=== PATIENT | female | born 1970 | race Caucasian/White ===

== ENCOUNTER 2020-03-13 14:38 | Emergency (ER) | payer OTHER ==
[~2020-03-13] VITALS: Ht 170.2 cm; Wt 72.6 kg
[2020-03-13] MEDS ORDERED: ONDANSETRON HCL INJ 2MG/ML 2ML 2 MG/ML VIAL IV STA (15:32)
--- OUTSIDE RECORDS SUMMARY | 2020-03-13 15:45 | XMS REPORT | Clinical Summary ---
Author Author [facility] Organization [place] [facility] Address Unknown Phone Unavailable Care Team Providers Care Saw Cleaner Name Role Phone Juan Temple MD PCP Allergies Comments Active Allergy Reactions Severity Noted Date Hydrocodone-Acetaminophen Itching 10/17/2009 Medications End Date Status Medication Sig Dispensed Refills Start Date Active LINZESS 290 mcg capsule 0 8 Active pantoprazole (PROTONIX) Take 40 mg by 3 40 MG EC tablet mouth 2 (two) 9 times a day. Active multivit with Take by mouth 0 calcium,iron,min daily. Take 2 (MULTIPLE VITAMIN, WOMENS gummies every ORAL) morning Active venlafaxine XR Take 75 mg by 0 (EFFEXOR-XR) 75 MG 24 hr mouth daily. capsule Active Lactobacillus acidophilus Take by 0 (PROBIOTIC ORAL) mouth. 11/17/2019 Discontinued (Med List Clean up) escitalopram (LEXAPRO) 10 Take 10 mg by 0 MG tablet mouth daily. 04/07/2019 ciprofloxacin (CIPRO) 500 Take 1 tablet 14 tablet 0 MG tablet (500 mg 9 total) by mouth 2 (two) times a day for 7 days. 04/07/2019 metroNIDAZOLE (FLAGYL) Take 1 tablet 14 tablet 0 1 500 MG tablet (500 mg 9 total) by mouth 3 (three) times a day for 7 days. 04/05/2019 keTOROlac (TORadol) 10 mg Take 1 tablet 20 tablet 0 tablet (10 mg total) 9 by mouth every 6 (six) hours as needed for moderate pain for up to 5 days. 04/08/2019 ondansetron (ZOFRAN) 4 MG Take 1 tablet 30 tablet 0 tablet (4 mg total) 9 by mouth every 6 (six) hours for 30 doses. Active Problems Problem Noted Date Other sprain of right shoulder joint, sequela 2019 Shoulder tendinitis 11/17/2019 Cervicalgia 10/06/2019 Sprain of left knee 01/26/2018 Diverticulosis 02/12/2016 Encounters Care Team Description Date Type Specialty Jose Corral MD Canceled (Patient) 02/17/2020 Hospital Procedural Cardiolo gy Encounter 02/15/2020 Travel Jose Corral MD Chest pain, moderate coronary artery ris k (Primary Dx); Anginal equivalent (HCC); Dyslipidemia; Cardiovascular risk factor; Family history of premature CAD; Counseling on health promotion and disease prevention; Lower extremity edema; SOHEILA (obstructive sleep apnea) 02/06/2020 Telephone Cardiology Consult 02/06/2020 Travel Smiley Keith RN Chest pain, moderate coronary artery ris k (Primary Dx); Anginal equivalent (HCC); Coronary artery disease involving [place] heart without angina pectoris, unspecified vessel or lesion type 02/06/2020 Orders Only Cardiology Logan Pickett MD Other sprain of right shoulder joint, se carvajal (Primary Dx) 12/09/2019 Office Visit Orthopedic Surgery 12/09/2019 Travel 12/07/2019 Travel Logan Pickett MD Other sprain of right shoulder joint, se quela (Primary Dx) 12/01/2019 Office Visit Orthopedic Surgery 12/01/2019 Travel Logan Pickett MD Right shoulder pain, unspecified chronic ity (Primary Dx); Acute pain of right shoulder; Tendinitis of right shoulder 11/17/2019 Office Visit Orthopedic Surgery 11/17/2019 Travel 10/19/2019 Travel 10/13/2019 Travel 10/11/2019 Travel Logan Pickett MD Right shoulder pain, unspecified chronic ity (Primary Dx); Cervicalgia 10/06/2019 Office Visit Orthopedic Surgery 10/06/2019 Travel 10/03/2019 Travel Man Lewis MD Diverticulitis (Primary Dx) 03/30/2019 Emergency Emergency Medicine - 03/31/2019 after 03/13/2019 Surgical History Surgery Date Site/Laterality Comments SECTION TUBAL LIGATION GALLBLADDER SURGERY HYSTERECTOMY Medical History Medical History Date Comments Anemia Breast lump Bronchitis Chicken pox Gallbladder disease Hyperlipidemia Pneumonia Family History Medical History Relation Name Comments Hyperlipidemia Father Kidney disease Father Cancer Mother Emphysema Mother Heart disease Mother Hypertension Mother Relation Name Status Comments Father Mother Social History Date Tobacco Use Types Packs/Day Years Used Former Smoker Smokeless Tobacco: Never Used Drinks/Week oz/Week Comments Alcohol Use social Yes Sex Assigned at Date Recorded Female 01/26/2019 11:28 AM CDT Date Recorded COVID-19 Exposure Response 02/15/2020 3:32 PM CDT In the last month, have you been in contact with No / Unsure someone who was confirmed or suspected to have Coronavirus / COVID-19? Last Filed Vital Signs Reading Time Taken Comments Vital Sign 115/76 03/31/2019 1:00 AM [employer] Blood Pressure 66 03/31/2019 1:00 AM [employer] Pulse 36.7 C (98 F) 03/30/2019 9:49 PM [employer] Temperature 15 03/31/2019 1:00 AM [employer] Respiratory Rate 97% 03/31/2019 1:00 AM [employer] Oxygen Saturation - - Inhaled Oxygen Concentration 74.8 kg (165 lb) 02/03/2020 1:01 PM CDT Weight 167.6 cm (5' 6") 02/03/2020 1:01 PM CDT Height 26.63 02/03/2020 1:01 PM CDT Body Mass Index Plan of Treatment Health Maintenance Due Date Last Done Comments CERVICAL CANCER SCREENING 06/28/1992 INFLUENZA VACCINE Completed 02/23/2020, 01/31/2019 Procedures Comments Procedure Name Priority Date/Time Associated Diag nosis MRI SHOULDER WO CONTRAST Routine 12/07/2019 Other sprain of right RIGHT 8:08 AM CDT shoulder joint, seq uela XR SHOULDER 2+ VW RIGHT Routine 11/17/2019 Acute pain of right 3:27 PM CDT shoulder ID ARTHROCENTESIS Routine 11/17/2019 Tendinitis o f right ASPIR&/INJ MAJOR JT/BURSA 2:45 PM CDT shoulder W/O US CT ABDOMEN PELVIS WO STAT 03/30/2019 CONTRAST 11:40 PM [employer] ESTIMATED GFR STAT 03/30/2019 10:35 PM [employer] URINALYSIS SCREEN AND STAT 03/30/2019 MICROSCOPY, WITH REFLEX 10:35 PM [employer] TO CULTURE LIPASE LEVEL STAT 03/30/2019 10:35 PM [employer] COMPREHENSIVE METABOLIC STAT 03/30/2019 PANEL 10:35 PM [employer] HC COMPLETE BLD COUNT STAT 03/30/2019 W/AUTO DIFF 10:35 PM [employer] URINE CULTURE STAT 03/30/2019 10:34 PM [employer] after 03/13/2019 Results * MRI Shoulder Wo Contrast Right (12/07/2019 8:08 AM CDT) Specimen Narrative Performed At [facility] EXAMINATION: MRI SHOULDER WO CONTRAST RIGHT CLINICAL HISTORY: S43.491S Other spra in of right shoulder joint sequela, Shoulder pain rotator cuff tear impin gement suspected TECHNIQUE: Multiplanar multisequence MR imaging of the shoulder was performed without contrast. COMPARISON: 11/17/2019 FINDINGS: 1. Rotator cuff: Low-grade partial-thic kness bursal and interstitial tears of the supraspinatus. Infraspinatus, teres minor and subscapularis are unremarkable. No muscle atrophy. 2. Bursa: Trace subacromial/subdeltoid bursitis. 3. Biceps tendon: Long head of the sujit ps tendon intact. 4. Labrum: Intrasubstance degeneration of the anterosuperior labrum. No displaced labral tear. 5. AC joint: Mild AC joint degenerative arthritis. 6. Glenohumeral joint: Intact. Satisfac tory alignment. Osseous glenoid intact. 7. Articular cartilage: Articular carti mihai intact. 8. Joint Fluid:No joint effusion. Physi ologic joint fluid. 9. Bone marrow: No suspicious marrow si gnal abnormalities or stress changes. 10. Soft tissues: No mass, fluid collec tion or hematoma. IMPRESSION: 1.Partial-thickness tear of the suprasp inatus. No rotator cuff muscle atrophy. 2.Mild AC joint degenerative changes an d trace subacromial/subdeltoid bursitis. [id number] Procedure Note Hm Interface, Radiology Results Incoming - 12/07/2019 8:15 AM CDT EXAMINATION: MRI SHOULDER WO CONTRAST RIGHT CLINICAL HISTORY: S43.491S Other sprain of right shoulder joint sequela, Shoulder pain rotator cuff tear impingement suspected TECHNIQUE: Multiplanar multisequence MR imaging of the shoulder was performed without contrast. COMPARISON: 11/17/2019 FINDINGS: 1. Rotator cuff: Low-grade partial-thick ness bursal and interstitial tears of the supraspinatus. Infraspinatus, teres minor and subscapularis are unremarkable. No muscle atrophy. 2. Bursa: Trace subacromial/subdeltoid b ursitis. 3. Biceps tendon: Long head of the bicep s tendon intact. 4. Labrum: Intrasubstance degeneration o f the anterosuperior labrum. No displaced labral tear. 5. AC joint: Mild AC joint degenerative arthritis. 6. Glenohumeral joint: Intact. Satisfact ory alignment. Osseous glenoid intact. 7. Articular cartilage: Articular cartil age intact. 8. Joint Fluid:No joint effusion. Physio logic joint fluid. 9. Bone marrow: No suspicious marrow sig nal abnormalities or stress changes. 10. Soft tissues: No mass, fluid collect ion or hematoma. IMPRESSION: 1.Partial-thickness tear of the supraspi natus. No rotator cuff muscle atrophy. 2.Mild AC joint degenerative changes and trace subacromial/subdeltoid bursitis. [id number] Performing Organization Address City/[facility] Code P marilin Number [facility] [address] [place] [address] * XR Shoulder 2+ Vw Right (11/17/2019 3:27 PM CDT) Specimen Narrative Performed At [facility] Three-view x-ray of the right shoulder: There is a normal study with a small subacromial spur but otherwise no significant bony abnormality Performing Organization Address [facility] P marilin Number [facility] [address] [place] [address] * Large Joint Arthrocentesis: shoulder, R subacromial bursa (11/17/2019 2:45 PM CDT) Narrative Performed At Logan Pickett MD 11/17/2019 4:08 PM Large Joint Arthrocentesis: shoulder, R subacromial bursa Consent given by: patient Supporting Documentation Indications: pain Procedure Details Location: shoulder - R subacromial burs a Right side: Needle size: 22 G Approach: posterior Right shoulder medications administered : 80 mg methylPREDNISolone acetate 40 mg/mL; 3 mL lidocaine 10 mg/mL (1 %) * CT Abdomen Pelvis Wo Contrast (03/30/2019 11:40 PM [employer]) Specimen Narrative Performed At EXAMINATION: CT ABDOMEN PELVIS WO CONTRAST RADI ANT CLINICAL HISTORY: r o diverticulitis TECHNIQUE: Multiple axial images of the abdomen an d pelvis were obtained without intravenous administration of iodinated contrast. Sagittal and coronal computerized reformatted images were al so obtained. The lack of intravenous contrast reduces the sensitivity of detecting solid organ disease. Radiatio n dose reduction technique was utilized. COMPARISON: 11/28/2014 IMPRESSION: Abdomen: 1. There is no urinary tract calculus o r hydronephrosis. 2.Liver, spleen, pancreas, adrenals, an d kidneys do not demonstrate any masses without contrast. 3.There is no retroperitoneal adenopath y or ascites. 4.There are no dilated or thickened loo ps of bowel. 5.Status post cholecystectomy Pelvis: 1. Inflammatory changes consistent with acute diverticulitis are seen in the proximal sigmoid colon. There is no ehsan e air or abscess. 2.Appendix is normal. 3.Status post hysterectomy. 4.There is a small amount of free fluid in cul-de-sac. [id number] Procedure Note Interface, Radiology Results Incoming - 03/30/2019 11:51 PM [employer] EXAMINATION: CT ABDOMEN PELVIS WO CONTRAST CLINICAL HISTORY: r o diverticulitis TECHNIQUE: Multiple axial images of the abdomen and pelvis were obtained without intravenous administration of iodinated contrast. Sagittal and coronal computerized reformatted images were also obtained. The lack of intravenous contrast reduces the sensitivity of detecting solid organ disease. Radiation dose reduction technique was utilized. COMPARISON: 11/28/2014 IMPRESSION: Abdomen: 1. There is no urinary tract calculus or hydronephrosis. 2.Liver, spleen, pancreas, adrenals, and kidneys do not demonstrate any masses without contrast. 3.There is no retroperitoneal adenopathy or ascites. 4.There are no dilated or thickened loop s of bowel. 5.Status post cholecystectomy Pelvis: 1. Inflammatory changes consistent with acute diverticulitis are seen in the proximal sigmoid colon. There is no free air or abscess. 2.Appendix is normal. 3.Status post hysterectomy. 4.There is a small amount of free fluid in cul-de-sac. [id number] Performing Organization Address City/State/[place] [address] * Urinalysis screen and microscopy, with reflex to culture (03/30/2019 10:35 PM [employer]) Specimen site Clean catch [facility] Color, UA Straw [facility] Appearance, UA Clear [facility] Specific 1.009 1.001 - 1.035 [facility] gravity, [facility] pH, UA 7.0 5.0 - 8.5 [facility] Protein, UA Negative Negative [facility] Glucose, UA Negative Negative [facility] Ketones, UA Negative Negative [facility] Bilirubin, UA Negative Negative [facility] Blood, UA Small (A) Negative [facility] Nitrite, UA Negative Negative [facility] Urobilinogen, <2.0 <2.0 [facility] Leukocyte Negative Negative [facility] esterase, [facility] Epithelial 2 /HPF [facility] cells, [facility] WBC, UA 2 0 - 4 /HPF [facility] RBC, UA 2 0 - 5 /HPF [facility] Bacteria, UA Few None seen [facility] Yeast, UA None seen [facility] Yeast with None seen [facility] Specimen Urine Performing Organization Address [facility] P marilin Number [facility] [place] [address] [facility] [address] * Estimated GFR (03/30/2019 10:35 PM [employer]) Pathologist [facility] Estimated GFR 75 mL/min/1.73 m2 [facility] Comment: [facility] Interpretation G1 >=90 Normal or high G2 60-89 Mildly decreased G3a 45-59 Mildly to moderately decreased G3b 30-44 Moderately to severely decreased G4 15-29 Severely decreased G5 <15 Kidney failure The eGFR was calculated using the Chronic Kidney Disease Epidemiology Collaboration (CKD-EPI) equation. Interpretation is based on recommendations of the National Kidney Foundation-Kidney Disease Outcomes Quality Initiative (NKF-KDOQI) published in 2014. Specimen Plasma specimen Performing Organization Address City/State/ZIP [place] [address] [facility] [address] * CBC with platelet and differential (03/30/2019 10:35 PM [employer]) WBC 7.59 4.50 - 11.00 k/uL [facility] RBC 4.13 (L) 4.20 - 5.50 m/uL [facility] HGB 12.4 12.0 - 16.0 g/dL [facility] HCT 38.8 37.0 - 47.0 % [facility] MCV 93.9 82.0 - 100.0 fL [facility] MCH 30.0 27.0 - 34.0 pg [facility] MCHC 32.0 31.0 - 37.0 g/dL [facility] RDW - SD 42.8 37.0 - 55.0 fL [facility] MPV 9.4 8.8 - 13.2 fL [facility] Platelet count 244 150 - 400 k/uL [facility] Nucleated RBC 0.00 /100 WBC [facility] Neutrophils 67.8 39.0 - 69.0 % [facility] Lymphocytes 22.5 (L) 25.0 - 45.0 % [facility] Monocytes 8.0 0.0 - 10.0 % [facility] Eosinophils 1.1 0.0 - 5.0 % [facility] Basophils 0.5 0.0 - 1.0 % [facility] Immature 0.1Comment: "Immature 0.0 - 1.0 % [facility] granulocytes granulocytes" (promyelocytes, METHOD IST myelocytes, metamyelocytes) HOSPITAL Specimen Blood Performing Organization Address City/State/ZIP Code P marilin Number [facility] [place] [address] [facility] [address] * Lipase level (03/30/2019 10:35 PM [employer]) Pathologist [facility] Lipase 31 13 - 60 U/L [facility] Specimen Plasma specimen Performing Organization Address City/State/ZIP [place] [address] [facility] [address] * Comprehensive metabolic panel (03/30/2019 10:35 PM [employer]) Pathologist [facility] Sodium 139 135 - 148 mEq/L [facility] Potassium 3.8 3.5 - 5.0 mEq/L [facility] Chloride 99 98 - 112 mEq/L [facility] CO2 28 24 - 31 mEq/L [facility] Anion gap 12@ANIO 7 - 15 mEq/L [facility] BUN 9 6 - 20 mg/dL [facility] Creatinine 0.91 (H) 0.50 - 0.90 mg/dL [facility] Glucose 97 65 - 99 mg/dL [facility] Calcium 9.5 8.3 - 10.2 mg/dL [facility] Protein 7.2 6.3 - 8.3 g/dL [facility] Comment: [facility] Rforuuu2247.6-7.0 g/dL HOSPITAL 1 [id number] g/dL 7 months-3qoht560.1-7.3 g/dL 1-2 iytcy864.6-7.5 g/dL >3 bdraj138.0-8.0 g/dL 18-9284839.3-8.3 g/dL Albumin 3.6 3.5 - 5.0 g/dL [facility] A/G ratio 1.0 0.7 - 3.8 [facility] Alkaline 56 35 - 104 U/L [facility] phosphatase [facility] AST 15 10 - 35 U/L [facility] ALT 15 5 - 50 U/L [facility] Total bilirubin 0.6 0.0 - 1.2 mg/dL [facility] Specimen Plasma specimen Performing Organization Address City/[facility]/ZIP [facility] [place] [address] PATHOLOGY AND [facility]OM[facility] MEDICINE [address] * Urine culture (03/30/2019 10:34 PM [employer]) Urine culture SEE COMMENTComment: [facility] Bacteriuria screen negative. [facility] Specimen Performing Organization Address City/[facility] [place] [address] PATH[facility]Y AND [facility] MEDICINE [address] after 03/13/2019 Insurance Type Payer Benefit Subscriber ID Effective Phone Address Plan / Dates Group HMO/PPO [facility] [id number] 2019-P THCARE resent CHOICE/CHO ICE + [phone] Advance Directives For more information, please contact: [phone] Patient High Voltage Electrician Explanation Type Date Recorded Advance Directives, Living Will and Medical Power of Hospital Monitor Advance Directives, Living Will and Medical Power of Hospital Monitor Advance Directives, Living Will and Medical Power of Hospital Monitor
--- OUTSIDE RECORDS SUMMARY | 2020-03-13 15:45 | XMS REPORT | Clinical Summary ---
Author Author VINCE miacosa [facility] [employer] [facility] [place] Address Unknown Phone Unavailable Care Team Providers Care Statistician Theoretical Name Role Phone Juan Temple MD PCP Allergies Comments Active Allergy Reactions Severity Noted Date Montelukast Rash High 06/23/2019 Medications Not on file Active Problems Not on file Encounters Care Team Description Date Type Specialty Santosh Meadows MD , [facility] Room Abdominal pain, epigastric; Bloating; Change in bowel habits; Other constipation; Diverticulitis of colon; Dyspepsia; Left lower quadrant pain; Left upper quadrant pain; RLQ abdominal pain 06/23/2019 Hospital Computed Tomography Encounter Santosh Meadows MD Abdominal pain, epigastric (Primary Dx); Bloating; Change in bowel habits; Other constipation; Diverticulitis of colon; Dyspepsia; Left lower quadrant pain; Left upper quadrant pain; RLQ abdominal pain 06/22/2019 Outside Orders Central Scheduling after 03/13/2019 Social History Date Tobacco Use Types Packs/Day Years Used Never Assessed Sex Assigned at Date Recorded Not on file Last Filed Vital Signs Reading Time Taken Comments Vital Sign - - Blood Pressure - - Pulse - - Temperature - - Respiratory Rate - - Oxygen Saturation - - Inhaled Oxygen Concentration 74.8 kg (165 lb) 06/23/2019 6:59 AM PEDIATRIC CARDIOLOGIST Weight 167.6 cm (5' 6") 06/23/2019 6:59 AM PEDIATRIC CARDIOLOGIST Height 26.63 06/23/2019 6:59 AM PEDIATRIC CARDIOLOGIST Body Mass Index Plan of Treatment Health Maintenance Due Date Last Done Comments CERVICAL CANCER SCREENING 06/28/1992 PAP ONLY (Age 21-65) LIPID PANEL 06/28/2016 INFLUENZA VACCINE (#1) 2019 Procedures Comments Procedure Name Priority Date/Time Associated Diag nosis CT ABDOMEN WITH IV Routine 06/23/2019 Abdominal p ain, CONTRAST 8:50 AM PEDIATRIC CARDIOLOGIST epigastric Bloating Change in bowel habits Other constipation Diverticulitis of colon Dyspepsia Left lower quadrant pain Left upper quadrant pain RLQ abdominal pain after 03/13/2019 Results * CT Abdomen with IV Contrast (06/23/2019 8:50 AM PEDIATRIC CARDIOLOGIST) Specimen Narrative Performed At FINAL REPORT [facility] of the abdomen and pelvis, with cont rast Clinical History: abdominal pain, epi gastric, bloating(abdominal), change in bowel habits, constipation, d iverticulitis of colon, dyspepsia, left lower quadrant pain, le ft upper quadrant pain, right lower quadrant pain Technique: CT of the abdomen and pelv is is performed with intravenous contrast administration. This exam was performed according to our departmental dose opti mization program which includes automated exposure control, ad justment of the mA and/or kV according to patient's size and/or use of iterative reconstructive technique. Comparison Film: None Discussion: Visualized lower thorax is unremarkable . No liver lesion is identified. Status p ost cholecystectomy. The extra hepatic bile duct is slightly prominent , likely reflecting physiologic change after gallbladder re moval. Spleen contains a few tiny calcified gr anulomas. Pancreas, and adrenal glands are unremarkable. Kidneys demonstrate no mass, or hydrone phrosis, no radiopaque stone. No bowel obstruction. No abnormal bowel wall thickening is identified. There is a small duodenal d iverticulum. The appendix is normal. There is left-sided colonic div erticulosis, without evidence of acute diverticulitis. Moderate amoun t of fecal content in colon could reflect constipation. In the pelvis, bladder is unremarkable. Uterus is absent. No adnexal mass. There is no ascites, free air or lympha denopathy. Osseous structures are intact. Impression: No acute process is identified in the a bdomen or pelvis. Colonic diverticulosis. Findings sugges t constipation. Status post cholecystectomy, and hyster ectomy. Signed: Zenon Mai MD Report Verified Date/Time: 06/23/2019 16:30:04 Reading Location: [address] Transiti onmn Reading Room Procedure Note Interface, External Ris In - 06/23/2019 4:32 PM PEDIATRIC CARDIOLOGIST FINAL REPORT CT of the abdomen and pelvis, with contrast Clinical History: abdominal pain, epigastric, bloating(abdominal), change in bowel habits, constipation, diverticulitis of colon, dyspepsia, left lower quadrant pain, left upper quadrant pain, right lower quadrant pain Technique: CT of the abdomen and pelvis is performed with intravenous contrast administration. This exam was performed according to our departmental dose optimization program which includes automated exposure control, adjustment of the mA and/or kV according to patient's size and/or use of iterative reconstructive technique. Comparison Film: None Discussion: Visualized lower thorax is unremarkable. No liver lesion is identified. Status post cholecystectomy. The extra hepatic bile duct is slightly prominent, likely reflecting physiologic change after gallbladder removal. Spleen contains a few tiny calcified granulomas. Pancreas, and adrenal glands are unremarkable. Kidneys demonstrate no mass, or hydronephrosis, no radiopaque stone. No bowel obstruction. No abnormal bowel wall thickening is identified. There is a small duodenal diverticulum. The appendix is normal. There is left-sided colonic diverticulosis, without evidence of acute diverticulitis. Moderate amount of fecal content in colon could reflect constipation. In the pelvis, bladder is unremarkable. Uterus is absent. No adnexal mass. There is no ascites, free air or lymphadenopathy. Osseous structures are intact. Impression: No acute process is identified in the abdomen or pelvis. Colonic diverticulosis. Findings suggest constipation. Status post cholecystectomy, and hysterectomy. Signed: Zenon Mai MD Report Verified Date/Time: 06/23/2019 16:30:04 Reading Location: [facility] Transitional Reading Room Performing Organization Address City/State/Zipcode Ph one Number GE RIS after 03/13/2019 Insurance Type Payer Benefit Subscriber ID Effective Phone Address Plan / Dates Group PPO BLUE CROSS/BLUE SHIELD BCBS PPO [id number] 2018-P [address] EPO resent [id number] [place] [address]
--- OUTSIDE RECORDS SUMMARY | 2020-03-13 15:45 | XMS REPORT | Continuity of Care Document ---
Author Author [facility] t Organization [facility] Address [address] [place] [address] Phone Unavailable Care Team Providers Care Manager Publishing Name Role Phone Maverick LUCAS, Oleksandr Martinez PCP DR AGATA HINTON Attphys Unavailable Shayna LUCAS, Armond Garcia Attphys [phone] Sagar RAMOS, Smiley Attphys Unavailable Piyush LUCAS, Kathy Ford Attphys Abdiel LUCAS, Santosh Attphys [address] [facility] Attphys Unavailable Joshua LUCAS, Rj Conway Attphys DR AGATA HINTON Admphy[employer]by Unavailable Payers Payer Name Policy Type Policy Number Effective Date Expiration Date Fabby rey [facility]/CHOICE [id number] 2019-PresentHMO/ PPO [id number] 2019 00:00:00 [employer] BLUE CROSS/BLUE SHIELDBCBS PPO POS EPO [id number] [id number], [place] [address]POG [id number] 2018 00:00:00 [facility] Problems Condition Name Condition Details Condition Category Status Onset Date Resolution Date Last Treatment Date Treating Clinician Comments Source Other sprain of right shoulder joint, sequela Other sp rain of right shoulder joint, sequela Disease Active 2019-12-01 00:00:00 Edson Montoya Shoulder tendinitis Shoulder tendinitis Disease Active 2019-11-17 00:00 :00 Edson Montoya Cervicalgia Cervicalgia Disease Active 2019-10-06 00:00:00 Edson Montoya Sprain of left knee Sprain of left knee Disease Active 2018-01-26 00:00 :00 Edson Montoya Diverticulosis Diverticulosis Disease Active 2016-02-12 00:00:00 Edson Montoya Allergies, Adverse Reactions, Alerts Allergy Name Allergy Type Status Severity Reaction(s) Onset Date Inacti ve Date Treating Clinician Comments Source Montelukast Drug Allergy Active Rash 2019-06-23 00:00:00 [facility] Hydrocodone-Acetaminophen Propensity to adverse reactions to drug A ctive Itching 2009-10-17 00:00:00 Edson Montoya Family History Family Member Diagnosis Comments Start Date Stop Date Source Natural father Hyperlipidemia [place] Natural father Kidney disease [place] Natural mother Cancer [facility] Natural mother Emphysema [facility] Natural mother Heart disease [facility] Natural mother Hypertension Edson Montoya Social History Social Habit Start Date Stop Date Quantity Comments Source Sex Assigned At F Brenda mendoza [facility] Exposure to SARS-CoV-2 (event) Not sure Edson Montoya Tobacco use and exposure 2020-02-03 00:00:00 2020-02-03 00:00:00 Pooja gardner used Edson Montoya Alcohol intake 2020-02-03 00:00:00 2020-02-03 00:00:00 Current drinker of alcohol (finding) Edson Montoya Alcohol Comment 2018-01-26 00:00:00 2018-01-26 00:00:00 social Edson Montoya Smoking Status Start Date Stop Date Source Former smoker 2020-02-03 00:00:00 2020-02-03 00:00:00 Edson Montoya Medications Ordered Medication Name Filled Medication Name Start Date Stop Da te Current Medication? Ordering Clinician Indication Dosage Frequency Signature (SIG) Comments Components Source multivit with calcium,iron,min (MULTIPLE VITAMIN, WOMENS ORA L) 2020-02-03 13:04:26 Yes QD Take by mouth daily. Take 2 g ummies every morning Edson Montoya Lactobacillus acidophilus (PROBIOTIC ORAL) 2020-02-03 13:04:26 Yes Take by mouth. Edson Montoya venlafaxine XR (EFFEXOR-XR) 75 MG 24 hr capsule 2020-02-03 13:03 :51 Yes 75mg QD Take 75 mg by mouth daily. Priti Montoya escitalopram (LEXAPRO) 10 MG tablet 2019-11-17 15:19:0 4 2019-11-17 00:00:00 No 10mg QD Take 10 mg by mouth daily. Edson Montoya ondansetron (ZOFRAN) 4 MG tablet 2019-03-31 00:00:00 2019-03 23:59:00 No 4mg Q6H Take 1 tablet (4 mg total) by mo ut every 6 (six) hours for 30 doses. Edson Montoya ciprofloxacin (CIPRO) 500 MG tablet 2019-03-31 00:00:0 0 2019-04-07 23:59:00 No 500mg Q.5D Take 1 tablet ( 500 mg total) by mouth 2 (two) times a day for 7 days. Edson Montoya metroNIDAZOLE (FLAGYL) 500 MG tablet 2019-03-31 00:00: 00 2019-04-07 23:59:00 No 500mg Q.[id number] Take 1 tablet (500 mg total) by mouth 3 (three) times a day for 7 days. Edson Montoya keTOROlac (TORadol) 10 mg tablet 2019-03-31 00:00:00 2019-03 23:59:00 No 10mg Q6H Take 1 tablet (10 mg total) by mouth every 6 (six) hours as needed for moderate pain for up to 5 days. Edson Montoya pantoprazole (PROTONIX) 40 MG EC tablet 2018-11-18 00:00:00 Yes 40mg Q.5D Take 40 mg by mouth 2 (two) times a day. Edson Montoya LINZESS 290 mcg capsule 2018-01-25 00:00:00 Yes Edson Montoya Vital Signs Vital Name Observation Time Observation Value Comments Source Body height 2020-02-03 13:01:00 167.6 cm Edson Montoya Body weight 2020-02-03 13:01:00 74.844 kg Edson Montoya BMI 2020-02-03 13:01:00 26.63 kg/m2 Edson Montoya Body height 2019-06-23 06:59:00 167.6 cm [facility] Body weight 2019-06-23 06:59:00 74.844 kg [facility] BMI 2019-06-23 06:59:00 26.63 kg/m2 [facility] Systolic blood pressure 2019-03-31 01:00:00 115 mm[Hg] Edson Montoya Diastolic blood pressure 2019-03-31 01:00:00 76 mm[Hg] Edson Montoya Heart rate 2019-03-31 01:00:00 66 /min Edson Montoya Respiratory rate 2019-03-31 01:00:00 15 /min Roland Montoya Oxygen saturation in Arterial blood by Pulse oximetry 2018-04 01:00:00 97 /min Edson Montoya Body temperature 2019-03-30 21:49:14 36.67 Radha Roland Montoya Procedures Procedure Date / Time Performed Performing Clinician Sourc e MRI SHOULDER WO CONTRAST RIGHT 2019-12-07 08:08:51 Iris Pickett XR SHOULDER 2+ VW RIGHT 2019-11-17 15:27:50 Agata Pickett [facility] ARTHROCENTESIS ASPIR&/INJ MAJOR JT/BURSA W/O US 2019-10-21 0 14:45:[address] ABDOMEN WITH IV CONTRAST 2019-06-23 08:50:00 Santosh Meadows [facility] CT ABDOMEN PELVIS WO CONTRAST 2019-03-30 23:40:29 Joshua, Man Montoya HC COMPLETE BLD COUNT W/AUTO DIFF 2019-03-30 22:35:00 [facility] COMPREHENSIVE METABOLIC PANEL 2019-03-30 22:35:00 [facility] LIPASE LEVEL 2019-03-30 22:35:00 [facility] URINALYSIS SCREEN AND MICROSCOPY, WITH REFLEX TO CULTURE 201 12-30-10 22:35:00 Man Lewis ESTIMATED GFR 2019-03-30 22:35:00 Man Lewis URINE CULTURE 2019-03-30 22:34:00 Man Lewis Plan of Care Planned Activity Planned Date Details Comments Source Future Scheduled Test 2019-12-20 00:00:00 INFLUENZA VACCINE (#1) [code = INFLUENZA VACCINE (#1)] [facility] Future Scheduled Test 2016-06-28 00:00:00 Lipid panel (proce dure) [code = 33910456] [facility] Future Scheduled Test 1992-06-28 00:00:00 Screening for danish gnant neoplasm of cervix (procedure) [code = 387293915] [facility] Future Scheduled Test 1992-06-28 00:00:00 Screening for danish gnant neoplasm of cervix (procedure) [code = 756965245] [facility] Start Date/Time End Date/Time Encounter Type Admission Type [facility] Care Department Encounter ID Source 2019-12-02 12:00:00 Inpatient C AGATA HINTON [facility] RI VEROAKSASC [id number] [facility] 2020-02-17 00:00:00 2020-02-17 00:00:00 Outpatient LOUISE LOZANO [facility] [id number] [facility] 2019-12-09 00:00:00 2019-12-09 00:00:00 Outpatient IRIS PICKETT [facility] [id number] [facility] 2019-12-07 00:00:00 2019-12-07 00:00:00 Outpatient IRIS PICKETT [facility] [id number] [facility] 2019-12-01 00:00:00 2019-12-01 00:00:00 Outpatient IRIS PICKETT [facility] [id number] [facility] 2019-11-17 00:00:00 2019-11-17 00:00:00 Outpatient IRIS PICKETT [facility] [id number] [facility] 2019-11-17 00:00:00 2019-11-17 00:00:00 Outpatient IRIS PICKETT [facility] [id number] [facility] 2019-10-19 00:00:00 2019-10-19 00:00:00 Outpatient IRIS PICKETT [facility] [id number] [facility] 2019-10-13 00:00:00 2019-10-13 00:00:00 Outpatient IRIS PICKETT [facility] [id number] Edson Montoya 2019-10-11 00:00:00 2019-10-11 00:00:00 Outpatient IRIS PICKETT [facility] [id number] Edson Montoya 2019-10-06 00:00:00 2019-10-06 00:00:00 Outpatient IRIS PICKETT [facility] [id number] Edson Montoya Results Test Description Test Time Test Comments Results Result Comments Source Large Joint Arthrocentesis: shoulder, R subacromial bursa 11-16 14:45:00 Agata Pickett MD 11/17/2019 4:08 PMLarge Joint Arthrocentesis: shoulder, R subacromial bursaConsent given by: patientSupporting DocumentationIndications: pain Procedure DetailsLocation: shoulder - R subacromial bursa Right side:Needle size: 22 GApproach: posteriorRight shoulder medications administered: 80 mg methylPREDNISolone acetate 40 mg/mL; 3 mL lidocaine 10 mg/mL (1 %) Edson Montoya CT, ABDOMEN, WITH IV CONTRAST 2019-06-23 16:30:[address] of the abdomen and [...] constipation. Status post cholecystectomy, and hysterectomy. Signed: Zenno Mai Verified Date/Time: 06/23/2019 16:30:04 Reading Location: [address] Transitional Reading Room Abdomen with IV Contrast 2019-06-23 16:30:00 Interface, External Ris In 06/23/2019 4:[address] of the abdomen and pelvis, [...] post cholecystectomy, and hysterectomy. Signed: Zenon Mai Verified Date/Time: 06/23/2019 16:30:04 Reading Location: [address] Transitional Reading Room [facility] Urinalysis screen and microscopy, with reflex to culture 201 12-31-11 00:56:28 Test Item Specimen site (test code = 9659664) Clean catch Color, UA (test code = 5778-6) Straw Appearance, UA (test code = 5767-9) Clear Specific gravity, UA (test code = 5811-5) 1.009 1.001-1.035 pH, UA (test code = 5803-2) 7.0 5.0-8.5 Protein, UA (test code = 75249-3) Negative Negative Glucose, UA (test code = 66140-5) Negative Negative Ketones, UA (test code = 2514-8) Negative Negative Bilirubin, UA (test code = 5770-3) Negative Negative Blood, UA (test code = 5794-3) Small Negative A Nitrite, UA (test code = 5802-4) Negative Negative Urobilinogen, UA (test code = 39565-9) <2.0 <2.0 Leukocyte esterase, UA (test code = 5799-2) Negative Negative Epithelial cells, UA (test code = 5787-7) 2 /HPF WBC, UA (test code = 5821-4) 2 0- 4 /HPF RBC, UA (test code = 52740-5) 2 0- 5 /HPF Bacteria, UA (test code = 99222-5) Few None seen Yeast, UA (test code = 28162-1) None seen Yeast with pseudohyphae, UA (test code = 73727-4) None seen Lab Interpretation (test code = 76286-5) Abnormal [facility] Abdomen Pelvis Wo [id number] 23:48:43Hm Interface, Radiology Results - 03/30/2019 11:51 PM CSTEXAMINATION: CT ABDOMEN PELVIS WO CONTRASTCLINICAL HISTORY: r o diverticulitisTECHNIQUE:Multiple axial images of the abdomen and pelvis were obtained without intravenous ad ministration of iodinated contrast. Sagittal and coronal computerized reformatte d images were also obtained. The lack of intravenous contrast reduces the sensit ivity of detecting solid organ disease. Radiation dose reduction technique was u tilized.COMPARISON: 11/28/2014IMPRESSION:Abdomen:1. There is no urinary tract ca lculus or hydronephrosis.2.Liver, spleen, pancreas, adrenals, and kidneys do not demonstrate any masses without contrast.3.There is no retroperitoneal adenopathy or ascites.4.There are no dilated or thickened loops of bowel.5.Status post ch olecystectomyPelvis:1. Inflammatory changes consistent with acute diverticulitis are seen in the proximal sigmoid colon. There is no free air or abscess.2.Appen osvaldo is normal.3.Status post hysterectomy.4.There is a small amount of free fluid in cul-de-sac.[facility]-[id number] MethodistUrine [id number] 23:33:06* Test Item Value Reference Range Interpretation Comments Urine culture (test code = 4788010) SEE COMMENT Bacteriuria screen negative. [facility] metabolic [id number] 23:32:50* Test Item Value Reference Range Interpretation Comments Sodium (test code = 2951-2) 139 135- 148 mEq/L Potassium (test code = 2823-3) 3.8 3.5- 5.0 mEq/L Chloride (test code = 2075-0) 99 98- 112 mEq/L CO2 (test code = 2027-9) 28 24- 31 mEq/L Anion gap (test code = 45339-5) 12@ANIO 7- 15 mEq/L BUN (test code = 3094-0) 9 mg/dL 6-20 Creatinine (test code = 2160-0) 0.91 mg/dL 0.5-0.9 H Glucose (test code = 2345-7) 97 mg/dL 65-99 Calcium (test code = 52359-2) 9.5 mg/dL 8.3-10.2 Protein (test code = 2885-2) 7.2 g/dL 6.3-8.3 Bsnnbxw2608.6-7.0 g/dL1 mkfm1591.4-7.6 g/dL7 months-4vhne136.1-7.3 g/dL1-2 .6-7.5 g/dL>3 zltjo531.0-8.0 g/oV35-8878378.3-8.3 g/dL Albumin (test code = 1751-7) 3.6 g/dL 3.5-5 A/G ratio (test code = 1759-0) 1.0 0.7-3.8 Alkaline phosphatase (test code = 6768-6) 56 U/L 35-104 AST (test code = 1920-8) 15 U/L 10-35 ALT (test code = 1742-6) 15 U/L 5-50 Total bilirubin (test code = 1975-2) 0.6 mg/dL 0-1.2 Lab Interpretation (test code = 45639-6) Abnormal [facility] MethodistLipase [id number] 23:32:49* Test Item Value Reference Range Interpretation Comments Lipase (test code = 3040-3) 31 U/L 13-60 [facility] MethodistEstimated [id number] 23:32:49* Test Item Value Reference Range Interpretation Comments Estimated GFR (test code = 5488) 75 mL/min/1.73 m2 Catergory Units InterpretationG1 >=90 Normal or highG2 60-89 Mildly hkpntepwuH2r 45-59 Mildly to moderately uumgqsmbtT9h 30-44 Moderately to severely decreasedG4 15-29 Severely decreasedG5 <15 Kidney failureThe eGFR was calculated using the Chronic Kidney Disease Epidemiology Collaboration (CKD-EPI) equation. Interpretation is based on recommendations of the National Kidney Foundation-Kidney Disease Outcomes Quality Initiative (NKF-KDOQI) published in 2014. [facility] MethodistCBC with platelet and jssqpdiufcea9934-84-29 23:04:51* Test Item Value Reference Range Interpretation Comments WBC (test code = 18656-5) 7.59 4.50- 11.00 k/uL RBC (test code = 68030-1) 4.13 m/uL 4.2-5.5 L HGB (test code = 718-7) 12.4 g/dL 12-16 HCT (test code = 4544-3) 38.8 % 37-47 MCV (test code = 787-2) 93.9 fL 82-100 MCH (test code = 785-6) 30.0 pg 27-34 MCHC (test code = 786-4) 32.0 g/dL 31-37 RDW - SD (test code = 59863-8) 42.8 fL 37-55 MPV (test code = 70399-5) 9.4 fL 8.8-13.2 Platelet count (test code = 76791-6) 244 150- 400 k/uL Nucleated RBC (test code = 39783-5) 0.00 /100 WBC Neutrophils (test code = 41310-5) 67.8 % 39-69 Lymphocytes (test code = 44019-6) 22.5 % 25-45 L Monocytes (test code = 13845-9) 8.0 % 0-10 Eosinophils (test code = 52939-0) 1.1 % 0-5 Basophils (test code = 38701-4) 0.5 % 0-1 Immature granulocytes (test code = 93993-7) 0.1 % 0-1 "Immature granulocytes" (promyelocytes, myelocytes, metamyelocytes) Lab Interpretation (test code = 36916-8) Abnormal Edson Montoya
[2020-03-13] MEDS ORDERED: ONDANSETRON HCL INJ 2MG/ML 2ML 2 MG/ML VIAL ONE (15:51)
--- NOTE | 2020-03-13 16:05 | Diagnostic Imaging Report ---
TECHNIQUE: CT of the abdomen and pelvis WITHOUT intravenous contrast and WITHOUT oral contrast. Dose modulation, iterative reconstruction, and/or weight-based adjustment of the mA/kV was utilized to reduce the radiation dose to as low as reasonably achievable. INDICATION: 49-year-old woman with abdominal pain. COMPARISON: None. FINDINGS: ABSENCE OF INTRAVENOUS CONTRAST DECREASES SENSITIVITY FOR DETECTION OF FOCAL LESIONS AND VASCULAR PATHOLOGY. LOWER THORAX: Unremarkable. HEPATOBILIARY: No focal hepatic lesions. Prior cholecystectomy. No biliary ductal dilatation. SPLEEN: No splenomegaly. Subcentimeter calcified granulomas in the spleen, likely related to prior granulomatous disease. PANCREAS: No focal masses or ductal dilatation. ADRENALS: No adrenal nodules. KIDNEYS/URETERS: No hydronephrosis, stones, or solid mass lesions. PELVIC ORGANS/BLADDER: Prior hysterectomy. Both ovaries are grossly unremarkable. Bladder is under distended. PERITONEUM/RETROPERITONEUM: No free air or fluid. LYMPH NODES: No lymphadenopathy. VESSELS: Unremarkable. GI TRACT: No distention or wall thickening. Colonic diverticula. Normal appendix. Small periampullary duodenal diverticulum. BONES AND SOFT TISSUES: Bones are unremarkable. 0.8 cm nodule in the lower outer right breast. Tiny fat-containing umbilical hernia. Subcentimeter metallic structure in the left gluteal musculature. IMPRESSION: No acute abnormalities in the abdomen or pelvis. Subcentimeter nodule in the lower outer right breast, possibly a lymph node. This finding may be correlated with dedicated breast imaging. Signed by: Gita García MD on 03/13/2020 4:02 PM
--- NOTE | 2020-03-13 16:15 | Emergency Department Note ---
History of Present Illnes History of Present Illness Chief Complaint: Abdominal Complaints History of Present Illness This is a 49 year old female Chief Complaint Comment ABD CRAMPING AND HAD BMX 2 WATERY TODAY. PT AAOX4. AMBULATORY. NO N/V/F. HX OF HYST. PT VERY ANXIOUS. STATES HX OF CONSTIPATION AND IBS. . Historian: Patient Arrival Mode: Car Onset (how long ago): day(s) (1) Location: abdomen Quality: dull Radiation: Denies non-radiation, Denies back, Denies neck, Denies extremity, Denies abdomen, Denies periumbilical, Denies flank, Denies proximal, Denies distal, Denies other Severity: moderate Onset quality: gradual Duration (how long): day(s) (1) Timing of current episode: intermittent Progression: waxing and waning Chronicity: new Context: Denies recent illness, Denies recent surgery, Denies recent immobilization, Denies recent travel, Denies trauma/injury, Denies new medications, Denies hx of DVT/PE, Denies non-compliance w/ medications, Denies other Relieving factors: none Exacerbating factors: none Associated symptoms: Reports nausea/vomiting; Denies denies other symptoms, Denies confusion, Denies chest pain, Denies cough, Denies diaphoresis, Denies fever/chills, Denies headaches, Denies loss of appetite, Denies malaise, Denies rash, Denies seizure, Denies shortness of breath, Denies syncope, Denies weakness, Denies other Treatments prior to arrival: none Past Medical/Family History Physician Review I have reviewed the patient's past medical and family history. Any updates have been documented here. Past Medical History Recent Fever: No Clinical Suspicion of Infectio: No New/Unexplained Change in Ment: No Past Medical History: Anxiety, Depression Other Medical History: IBS CONSTIPATION DIVERTICULOSIS Past Surgical History: Cholecysctectomy, Hysterectomy Social History Smoking Cessation: Never Smoker Counseling Performed: No Alcohol Use: None Any Illegal Drug Use: No Other Any Pre-Existing Lines (PICC,: No Review of Systems Review of Systems Constitutional: Reports no symptoms EENTM: Reports no symptoms; Denies as per HPI, Denies eye pain, Denies blurred vision, Denies tearing, Denies double vision, Denies ear pain, Denies ear discharge, Denies nose pain, Denies nose congestion, Denies throat pain, Denies throat swelling, Denies mouth pain, Denies mouth swelling, Denies other Cardiovascular: Reports no symptoms; Denies as per HPI, Denies chest pain, Denies edema, Denies palpitations, Denies syncope, Denies other Respiratory: Reports no symptoms Gastrointestinal: Reports as per HPI Genitourinary: Reports no symptoms; Denies as per HPI, Denies discharge, Denies dysuria, Denies frequency, Denies hematuria, Denies pain, Denies other Musculoskeletal: Reports no symptoms; Denies as per HPI, Denies back pain, Denies gout, Denies joint pain, Denies joint swelling, Denies muscle pain, Denies muscle stiffness, Denies neck pain, Denies other Integumentary: Reports no symptoms; Denies as per HPI, Denies change in color, Denies change in hair/nails, Denies dryness, Denies lesions, Denies lumps, Denies rash, Denies poor turgor, Denies ecchymosis, Denies other Neurological: Reports no symptoms; Denies as per HPI, Denies headache, Denies numbness, Denies paresthesia, Denies pre-existing deficit, Denies seizure, Denies tingling, Denies tremors, Denies weakness, Denies other Psychological: Reports no symptoms Endocrine: Reports no symptoms Hematological/Lymphatic: Reports no symptoms Physical Exam Related Data Allergies: Coded Allergies: acetaminophen (Verified Allergy, Unknown, 03/13/20) hydrocodone (Verified Allergy, Unknown, 03/13/20) Triage Vital Signs Vital Signs Date Time Temp Pulse Resp B/P (MAP) Pulse Ox O2 Delivery O2 Flow Rate FiO2 03/13/20 14:56 97.5 77 16 124/78 99 Room Air Vital signs reviewed: Yes Physical Exam CONSTITUTIONAL Constitutional: Present well-developed, Present well-nourished HENT HENT: Present normocephalic, Present atraumatic, Present oropharynx clear/moist, Present nose normal; Absent oropharynx normal, Absent mucosae dry, Absent nasal discharge, Absent nasal congestion, Absent rhinorrhea, Absent oropharyngeal exudate, Absent tonsillar excudate, Absent pharynx abnormal, Absent erythema, Absent dentition normal, Absent dental caries, Absent other HENT L/R: Present left ext ear normal, Present right ext ear normal; Absent left TM normal, Absent right TM normal, Absent left canal normal, Absent right canal normal, Absent left impacted cerumen, Absent right impacted cerumen, Absent left bulging TM, Absent right bulging TM, Absent other EYES Eyes: Reports PERRL, Reports conjunctivae normal; Denies EOM normal, Denies lids normal, Denies left eye discharge, Denies right eye discharge, Denies scleral icterus, Denies other NECK Neck: Present ROM normal; Absent supple, Absent thyromegaly, Absent tracheal deviation, Absent stridor, Absent JVD, Absent cervical adenopathy, Absent carotid bruit, Absent other PULMONARY Pulmonary: Present effort normal, Present breath sounds normal; Absent respiratory distress, Absent rales, Absent rhonchi, Absent chest tenderness, Absent other CARDIOVASCULAR Cardiovascular: Present regular rhythm, Present heart sounds normal, Present capillary refill normal, Present normal rate; Absent irregular rhythm, Absent intact distal pulses, Absent tachycardia, Absent bradycardia, Absent murmur, Absent gallop, Absent friction rub, Absent palpable pulses, Absent strong pulses, Absent weak pulses, Absent LLE edema, Absent RLE edema, Absent other GASTROINTESTINAL Abdominal: Present soft, Present bowel sounds normal, Present other (periumbilical tenderness) GENITOURINARY Genitourinary: Present exam deferred SKIN Skin: Present warm, Present dry MUSCULOSKELETAL Musculoskeletal: Present ROM normal NEUROLOGICAL Neurological: Present alert, Present oriented x 3, Present no gross motor or se nsory deficits PSYCHOLOGICAL Psychological: Present mood/affect normal, Present judgement normal Results Laboratory Lab results reviewed: Yes Imaging Imaging results reviewed: Yes Assessment & Plan Medical Decision Making MDM diverticulitis gastroenterits Reassessment Reassessment better Assessment & Plan Final Impression: (1) Abdominal pain, acute (2) Diarrhea Depart Disposition: HOME, SELF-CARE Last Vital Signs Date Time Temp Pulse Resp B/P (MAP) Pulse Ox O2 Delivery O2 Flow Rate FiO2 03/13/20 14:56 97.5 77 16 124/78 99 Room Air GLEN ABARCA MD Mar 13, 2020 16:15
== END 2020-03-13 16:38 | disposition home or self-care (01) ==
LOC: FSED 14:53
DX: R10.33 Periumbilical pain (principal); R19.7 Diarrhea, unspecified; F41.9 Anxiety disorder, unspecified; F32.9 Major depressive disorder, single episode, unspecified
CPT/HCPCS: 74176; 80048; 80076; 81003; 85025; 99284; J2405